=== PATIENT | female | born 2000 | race Caucasian/White ===

== ENCOUNTER 2023-10-05 10:11 | Inpatient (IN) | payer OTHER ==
[2023-10-07] MEDS ORDERED: TERBUTALINE 1 MG/ML VIAL SQ PRN (07:05)
[2023-10-07] MEDS ORDERED: OXYTOCIN 10 UNIT/ML 1 ML VIAL IM PRN (07:05)
[2023-10-07] MEDS ORDERED: LIDOCAINE 0.5% (PF) 5 MG/ML (50 ML SDV) SQ PRN (07:05)
[2023-10-07] MEDS ORDERED: METHYLERGONOVINE 0.2 MG/ML 1 ML AMP IM PRN (07:05)
[2023-10-07] MEDS ORDERED: TRANEXAMIC 1,000 MG/100ML-NACL 1,000 MG in EMPTY BAG 1 BAG IV PRN (07:05)
[2023-10-07] MEDS ORDERED: CARBOPROST TROMETHAMINE 250 MCG/ML 1 ML AMP IM PRN (07:05)
[2023-10-07] MEDS ORDERED: miSOPROStoL 200 MCG TAB PO PRN (07:05)
[2023-10-07] MEDS: LACTATED RINGERS 1,000 ML IV SCH (07:14)
[2023-10-07] MEDS: OXYTOCIN 30 UNITS/500 ML NS 30 UNIT in SALINE 1 500ML.BAG IV SCH (07:15)
[2023-10-07] MEDS: PENICILLIN G POTASSIUM 5,000,000 UNIT in DEXTROSE 5% IN WATER 100 ML IVPB STA (07:16)
[2023-10-07 07:33] LABS: Basophils % (A) 1 %; Eosinophils # (A) 0.1 k/uL (0-0.7); Eosinophils % (A) 1 %; HCT 37.1 % (34.0-46.0); HGB 12.3 gm/dL (11.4-16.0); Lymphocytes % (A) 22 %; MCH 28.6 pg (25.0-35.0); MCV 86.5 fL (80.0-100.0); Mean Platelet Volume 7.8; Monocytes # (A) 0.6 k/uL (0-1.0); Monocytes % (A) 6 %; Neutrophils # (A) 6.3 k/uL (1.3-7.7); Neutrophils % (A) 69 %; Platelet Count 253 k/uL (150-450); RBC 4.29 m/uL (3.80-5.40); WBC 9.2 k/uL (3.8-10.6)
[2023-10-07] MEDS ORDERED: NALBUPHINE 10 MG/ML (10 ML MDV) IV PRN (08:56)
--- NOTE | 2023-10-07 09:00 | P.HPOB ---
History of Present Illness H&P Date: 10/07/23 Chief Complaint: 40-2/7, induction The patient is a 22-year-old 2 para 1-0-0-1 admitted at 40-2/7 weeks as established by last menstrual period and confirmed by 8-week ultrasound. She is admitted for postdates induction of labor with all signs reassuring and a favor able cervix. Her has been uncomplicated and group B strep status is positive. On labor and delivery, all signs are reassuring with category 1 heart rate tracing. Obstetrical history: 2 para 1-0-0-1 with 1 term vaginal delivery without complications. Current statistics are listed in history of present illness. EDC of 10/05/2023 was established by last menstrual period and confirmed by 8-week ultrasound. Laboratory workup demonstrates a blood type of A+ with a negative antibody screen. Rubella status is immune. The remainder of the laboratory workup was within normal limits. 1 hour Glucola was normal and group B strep status is positive. Gynecologic history: Unremarkable with no history of any infections to include STDs. Review of Systems Review of systems is confined to history of present illness. Past Medical History Past Medical History: No Reported History History of Any Multi-Drug Resistant Organisms: None Reported Past Surgical History: No Surgical Hx Reported Past Anesthesia/Blood Transfusion Reactions: No Reported Reaction Past Psychological History: No Psychological Hx Reported Smoking Status: Never smoker Past Alcohol Use History: None Reported Past Drug Use History: None Reported - Past Family History Mother Additional Family Medical History / Comment(s): lupus Medications and Allergies Home Medications Medication Instructions Recorded Confirmed Type Omeprazole 20 mg PO AC-BRKFST 10/07/23 10/07/23 History Vit No.179/Iron/Folic 1 tablet PO DAILY 10/07/23 10/07/23 History [ Tablet] Allergies Allergy/AdvReac Type Severity Reaction Status Date / Time codeine AdvReac Nausea & Verified 10/07/23 06:53 Vomiting Exam Vital Signs Temp Pulse Resp BP Pulse Ox 10/07/23 07:38 97.0 F L 87 16 121/71 97 Intake and Output 10/06/23 10/07/23 10/07/23 22:59 06:59 14:59 Other: Weight 107.955 kg 107.955 kg In general, this is a well-developed, well-nourished white female in no acute distress. Her heart has a regular rhythm and rate without murmur. Her lungs are clear to auscultation bilaterally in all salazar. Her abdomen is gravid, nondistended, has normal active bowel sounds, soft, nontender, and without any palpable masses aside from the uterine fundus. Her extremities are without any cyanosis, clubbing, or edema and are nontender to palpation bilaterally. Digital cervical examination demonstrates her cervix to be 4 cm dilated, 60% effaced, with a vertex and presentation at -2 station. Artificial rupture of membranes is carried out demonstrating clear fluid. Results Result Diagrams: 10/07/23 07:10 Assessment and Plan (1) Post-dates Current Visit: Yes Status: Acute Code(s): O48.0 - POST-TERM SNOMED Code(s): 13743637 (2) Group B streptococcal infection in Current Visit: Yes Status: Acute Code(s): O98.819 - OTH MATERNAL INFEC/PARASTC DISEASES COMP PREG, UNSP TRI; B95.1 - STREPTOCOCCUS, GROUP B, CAUSING DISEASES CLASSD ELSWHR SNOMED Code(s): 482062016 Plan: The patient is admitted for postdates induction of labor. Pitocin augmentation has been started and she has had antibiotic prophylaxis started for group B strep. She will have close maternal and surveillance and expectant management will be practiced. She is a good candidate for either IV, epidural, or nitrous analgesia, whichever she may choose.
[2023-10-07] MEDS ORDERED: SODIUM CHLORIDE 0.9% 250 ML BAG ONE (10:24)
[2023-10-07] MEDS ORDERED: fentaNYL (PF) 50 MCG/ML 5 ML AMP ONE (10:24)
[2023-10-07] MEDS ORDERED: ROPIVACAINE 5 MG/ML 30 ML VIAL ONE (10:24)
[2023-10-07] MEDS: PENICILLIN G POTASSIUM 2,500,000 UNIT in DEXTROSE 5% IN WATER 100 ML IVPB SCH (11:31)
[2023-10-07] MEDS ORDERED: diphenhydrAMINE 50 MG CAP PO PRN (12:13)
[2023-10-07] MEDS ORDERED: ZOLPIDEM 5 MG TAB PO PRN (12:13)
[2023-10-07] MEDS ORDERED: HYDROcodone/APAP 7.5-325MG 1 EACH TAB PO PRN (12:13)
[2023-10-07] MEDS ORDERED: LANOLIN CREAM 1 GM TUBE TOPICAL PRN (12:13)
[2023-10-07] MEDS ORDERED: diphenhydrAMINE 50 MG/ML 1 ML VIAL IVP PRN ×2 (12:13)
[2023-10-07] MEDS ORDERED: HYDROcodone/APAP 5-325MG 1 EACH TAB PO PRN (12:13)
[2023-10-07] MEDS ORDERED: BENZOCAINE/MENTHOL SPRAY 1 GM/SPRAY AEROSOL TOPICAL PRN (12:13)
[2023-10-07] MEDS ORDERED: HYDROCORTISONE 2.5% RECTAL CREAM 30 GM TUBE RECTAL PRN (12:13)
[2023-10-07] MEDS ORDERED: ACETAMINOPHEN TAB 325 MG TAB PO PRN (12:13)
[2023-10-07] MEDS ORDERED: diphenhydrAMINE 25 MG CAP PO PRN (12:13)
[2023-10-07] MEDS ORDERED: SIMETHICONE 80 MG CHEWABLE PO PRN (12:13)
[2023-10-07] MEDS ORDERED: OXYTOCIN 30 UNITS/500 ML NS 30 UNIT in SALINE 1 500ML.BAG IV SCH (12:15)
--- NOTE | 2023-10-07 12:17 | P.PROBDLV ---
Vaginal Delivery Note - . Vaginal Delivery Note: The patient is a 22-year-old 2 para 1-0-0-1 admitted at 40-2/7 weeks by good dating parameters. She is admitted for postdates induction with all signs reassuring, category 1 heart rate tracing. Her was entirely uncomplicated and group B strep status is positive. On labor and delivery, she had antibiotic prophylaxis started followed by Pitocin augmentation. She then had artificial rupture of membranes for clear fluid. She shortly thereafter had an epidural catheter placed for analgesia and progressed very quickly through the active phase of labor to complete. She then pushed over the course of approximately 5 contractions to a normal spontaneous vaginal delivery of a viable 6 pound 4 ounce baby boy with Apgars of 8 at 1 minute and 9 at 5 minutes in the direct occiput anterior position. The placenta was delivered spontaneously, intact, grossly normal though it was quite small. There was a grossly normal, centrally inserted three-vessel cord. There were no lacerations of the perineum, vagina, or cervix. Estimated blood loss was approximately 150 mL. All sponge, instrument, and needle counts were correct. Both mother and are resting comfortably in recovery.
[2023-10-07] MEDS: IBUPROFEN 600 MG TAB PO PRN (15:19)
[2023-10-07] MEDS: SENNOSIDES-DOCUSATE SODIUM 1 EACH TAB PO SCH (20:05)
[2023-10-08 06:00] LABS: Basophils # (A) 0.1 k/uL (0-0.2); Basophils % (A) 1 %; Eosinophils # (A) 0.1 k/uL (0-0.7); Eosinophils % (A) 1 %; HCT 38.5 % (34.0-46.0); HGB 12.5 gm/dL (11.4-16.0); Lymphocytes # (A) 3.6 k/uL (1.0-4.8); Lymphocytes % (A) 29 %; MCH 28.2 pg (25.0-35.0); MCHC 32.5 g/dL (31.0-37.0); MCV 86.7 fL (80.0-100.0); Mean Platelet Volume 7.8; Monocytes # (A) 0.7 k/uL (0-1.0); Monocytes % (A) 6 %; Neutrophils # (A) 7.7 k/uL (1.3-7.7); Neutrophils % (A) 62 %; Platelet Count 237 k/uL (150-450); RBC 4.44 m/uL (3.80-5.40); WBC 12.5 k/uL (3.8-10.6)
--- NOTE | 2023-10-08 08:54 | P.DS ---
Providers Date of admission: 10/07/23 06:37 Expected date of discharge: 10/08/23 Attending physician: Howard Inman Primary care physician: Aneesh Verduzco - Discharge Diagnosis(es) (1) Post-dates Current Visit: Yes Status: Acute (2) Group B streptococcal infection in Current Visit: Yes Status: Acute (3) Normal spontaneous vaginal delivery Current Visit: Yes Status: Acute Hospital Course: The patient is a 22-year-old 2 para 1-0-0-1 admitted at 40-2/7 weeks by good dating parameters. She is admitted for postdates induction with all signs reassuring, category 1 heart rate tracing. She is group B strep positive. On labor and delivery, she had Pitocin augmentation started as well as antibiotic prophylaxis. She then underwent artificial rupture of membranes for clear fluid. She had an epidural catheter placed for analgesia but overall made very rapid progress through both stages of labor to complete and then pushed quickly to a normal spontaneous vaginal delivery of a viable 6 pound 4 ounce baby boy with Apgars of 8 at 1 minute and 9 at 5 minutes. Her course was unremarkable with vital signs remaining stable and her temperature was afebrile throughout. She was deemed stable for discharge on day #1 and was discharged home to follow-up in the office in 6 weeks time routinely. Discharge instructions included calling for any significantly increased bleeding or foul-smelling lochia, significantly increased fever or abdominal pain, perineal complaints, breast complaints, or anything else that concerned her. She was additionally instructed to have nothing in the vagina for at least 6 weeks time to include intercourse. She understood her instructions and agrees to follow-up as noted above. Discharge medications included continued vitamins as she has opted to breast-feed. She was otherwise to use [id number] analgesic pain medications as needed. Maternal blood type is a positive and rubella status is immune. Procedures: #1. Antibiotic prophylaxis #2. Pitocin induction #3. Artificial rupture of membranes #4. Epidural analgesia #5. Normal spontaneous vaginal delivery Patient Condition at Discharge: Stable Plan - Discharge Summary New Discharge Prescriptions: No Action Omeprazole 20 mg PO AC-BRKFST Vit No.179/Iron/Folic [ Tablet] 1 tablet PO DAILY Discharge Medication List Omeprazole 20 mg PO AC-BRKFST 10/07/23 [History] Vit No.179/Iron/Folic [ Tablet] 1 tablet PO DAILY 10/07/23 [History] Follow up Appointment(s)/Referral(s): Howard Inman MD [STAFF PHYSICIAN] - 6 Weeks Discharge Disposition: HOME SELF-CARE
[2023-10-08 12:31] VITALS: BP 123/79; PULSE 71; RESP 16; TEMP 98.5
== END 2023-10-08 14:45 | disposition home or self-care (01) | DRG 807 ==
LOC: 4FBP 10-07 06:37
PROVIDERS: ADMIT Obstetrics & Gynecology; ATTEND Obstetrics & Gynecology
PROC: 3E033VJ Introduction of Other Hormone into Peripheral Vein, Percutaneous Approach (ICD-10-PCS; principal; 2023-10-07)
PROC: 10907ZC Drainage of Amniotic Fluid, Therapeutic from Products of Conception, Via Natural or Artificial Opening (ICD-10-PCS; principal; 2023-10-07)
PROC: 10E0XZZ Delivery of Products of Conception, External Approach (ICD-10-PCS; principal; 2023-10-07)
DX: O48.0 Post-term pregnancy (principal); O62.3 Precipitate labor; O99.824 Streptococcus B carrier state complicating childbirth; Z28.310 Unvaccinated for COVID-19; Z88.5 Allergy status to narcotic agent; Z3A.40 40 weeks gestation of pregnancy; Z37.0 Single live birth
CPT/HCPCS: 85025; 86850; 86900; 86901

== ENCOUNTER → 2024-11-03 | Outpatient (CLI) | payer BC ==
--- NOTE | 2024-11-03 08:25 | US ---
EXAMINATION TYPE: US abdomen complete DATE OF EXAM: 11/03/2024 COMPARISON: NONE CLINICAL INDICATION: Female, 23 years old with history of K80.20 CALCULUS OF GALLBLADDER R10.11 RUQ P AIN; RUQ pain x 1 month. Patient has a history of gallbladder issues. Pt is 14 weeks . TECHNIQUE: Grayscale and color Doppler imaging of the abdomen was performed. FINDINGS: EXAM MEASUREMENTS: Liver Length: 17.0 cm Gallbladder Wall: 0.17 cm CBD: Obscured Spleen: 13.0 cm Right Kidney: 12.6 x 5.4 x 4.0 cm Left Kidney: 10.9 x 5.2 x 4.7 cm CUT OFF WORKER NOTES: Exam is limited due to gas. Pancreas: Limited due to gas. *Head and portion of tail was obscured. Liver: *Measures upper limits of normal homogeneous appearance. Gallbladder: No abnormalities seen Evidence for sonographic Roy's sign: No CBD: Obscured Spleen: Upper limits of normal. Right Kidney: No hydronephrosis. Left Kidney: wnl, No hydronephrosis, calculi or masses seen Upper IVC: Appears wnl Abd Aorta: Appears wnl IMPRESSION: 1. Borderline liver size at 17.0 cm. 2. No gallstones. 3. The bile duct was obscured and could not be evaluated. [facility], , 11/03/2024 8:22 AM
== END | disposition home or self-care (01) ==
LOC: RADUSWWP 07:27
PROVIDERS: ATTEND Obstetrics & Gynecology
DX: R10.11 Right upper quadrant pain (principal)
CPT/HCPCS: 76700